=== PATIENT | female | born 1935 | race Caucasian/White ===

== ENCOUNTER 2016-07-30 10:12 | Outpatient (CLI) | payer MEDICARE, OTHER | END 2016-07-30 10:13 | disposition home or self-care (01) | DX: M51.36 Other intervertebral disc degeneration, lumbar region (principal); M47.816 Spondylosis without myelopathy or radiculopathy, lumbar region; M51.26 Other intervertebral disc displacement, lumbar region; M43.16 Spondylolisthesis, lumbar region; M41.86 Other forms of scoliosis, lumbar region ==

== ENCOUNTER 2016-11-11 18:43 | Observation (INO) | payer MEDICARE, OTHER ==
[2016-11-11] MEDS ORDERED: ASPIRIN CHEW 81 MG TABLET PO STA (19:08)
[2016-11-11] MEDS ORDERED: ASPIRIN CHEW 81 MG TABLET ONE (19:24)
[2016-11-11] MEDS ORDERED: HYDROcod/ACETAM 5/325 MG TABLET PO PRN (20:14)
[2016-11-11] MEDS ORDERED: ONDANSETRON 4 MG/2 ML VIAL IVP PRN (20:14)
[2016-11-11] MEDS ORDERED: SODIUM CHLORIDE FLUSH 0.9% 10 ML SYRINGE IVP PRN (20:14)
[2016-11-11] MEDS ORDERED: ONDANSETRON ODT 4 MG TABLET TL PRN (20:14)
[2016-11-11] MEDS ORDERED: NITROGLYCERIN SL 0.4 MG TABLET SL PRN (20:16)
[2016-11-11] MEDS: SODIUM CHLORIDE FLUSH 0.9% 10 ML SYRINGE IVP SCH (21:47)
[2016-11-12] MEDS ORDERED: PANTOPRAZOLE 40 MG TABLET PO STA (00:15)
[2016-11-12] MEDS ORDERED: PANTOPRAZOLE 40 MG TABLET ONE (00:20)
[2016-11-12] MEDS ORDERED: PANTOPRAZOLE 40 MG TABLET PO SCH (00:34)
[2016-11-12] MEDS ORDERED: CALCIUM CARBONATE CHEW 500 MG TABLET PO SCH (01:00)
[2016-11-12] MEDS: SODIUM CHLORIDE FLUSH 0.9% 10 ML SYRINGE IVP SCH (05:38)
[2016-11-12] MEDS ORDERED: metFORMIN 850 MG TABLET PO SCH (08:00)
[2016-11-12] MEDS ORDERED: POLYETHYLENE GLYCOL 3350 17 GM PACKET PO SCH (09:00)
[2016-11-12] MEDS ORDERED: LISINOPRIL 20 MG TABLET PO SCH (09:00)
== END 2016-11-12 09:00 | disposition home or self-care (01) ==
DX: R07.9 Chest pain, unspecified (principal); K21.9 Gastro-esophageal reflux disease without esophagitis; D46.9 Myelodysplastic syndrome, unspecified; E11.65 Type 2 diabetes mellitus with hyperglycemia; E11.22 Type 2 diabetes mellitus with diabetic chronic kidney disease; I12.9 Hypertensive chronic kidney disease with stage 1 through stage 4 chronic kidney disease, or unspecified chronic kidney disease; N18.9 Chronic kidney disease, unspecified
CPT/HCPCS: 36415; 71020; 80048; 80053; 83690; 84484; 85025; 85379; 93005; 93010; 99283; 99285; A9270; G0378

== ENCOUNTER 2016-11-22 07:30 | Outpatient (CLI) | payer MEDICARE, OTHER | END 2016-11-22 07:31 | disposition home or self-care (01) | DX: D63.8 Anemia in other chronic diseases classified elsewhere (principal) ==

== ENCOUNTER 2016-11-22 08:14 | Day surgery (SDC) | payer MEDICARE, OTHER ==
[2016-11-22 08:32] VITALS: BP 159/83
== END 2016-11-22 08:15 | disposition home or self-care (01) ==
LOC: SDS 08:14
PROVIDERS: ATTEND Surgery
DX: C92.Z0 Other myeloid leukemia not having achieved remission (principal); D63.8 Anemia in other chronic diseases classified elsewhere; Z53.09 Procedure and treatment not carried out because of other contraindication
CPT/HCPCS: 85025; 85610; 85730

== ENCOUNTER 2016-12-02 12:22 | Outpatient (CLI) | payer MEDICARE, OTHER | END 2016-12-02 12:23 | disposition home or self-care (01) | DX: Z51.5 Encounter for palliative care (principal); M54.2 Cervicalgia; R63.0 Anorexia; D61.818 Other pancytopenia; D46.9 Myelodysplastic syndrome, unspecified; C92.Z0 Other myeloid leukemia not having achieved remission; Z95.828 Presence of other vascular implants and grafts; R19.7 Diarrhea, unspecified; K59.00 Constipation, unspecified; D69.6 Thrombocytopenia, unspecified; R06.02 Shortness of breath; E11.9 Type 2 diabetes mellitus without complications; N18.9 Chronic kidney disease, unspecified; I10 Essential (primary) hypertension; M35.3 Polymyalgia rheumatica; E78.5 Hyperlipidemia, unspecified; M16.10 Unilateral primary osteoarthritis, unspecified hip; M17.10 Unilateral primary osteoarthritis, unspecified knee; K21.9 Gastro-esophageal reflux disease without esophagitis; K76.0 Fatty (change of) liver, not elsewhere classified; M54.16 Radiculopathy, lumbar region; R61 Generalized hyperhidrosis; Z79.82 Long term (current) use of aspirin; Z79.52 Long term (current) use of systemic steroids; D64.9 Anemia, unspecified; M62.81 Muscle weakness (generalized); F41.9 Anxiety disorder, unspecified ==

== ENCOUNTER 2016-12-03 14:30 | Outpatient (CLI) | payer MEDICARE, OTHER | END 2016-12-03 14:31 | disposition home or self-care (01) | DX: Z51.5 Encounter for palliative care (principal); K13.79 Other lesions of oral mucosa; R63.0 Anorexia; D61.818 Other pancytopenia; D46.9 Myelodysplastic syndrome, unspecified; C92.Z0 Other myeloid leukemia not having achieved remission; R06.02 Shortness of breath; Z79.899 Other long term (current) drug therapy; R68.81 Early satiety; Z66 Do not resuscitate; R53.1 Weakness; R25.1 Tremor, unspecified; E11.65 Type 2 diabetes mellitus with hyperglycemia ==

== ENCOUNTER 2016-12-09 12:34 | Inpatient (IN) | payer MEDICARE, OTHER ==
--- NOTE | 2016-12-09 13:49 | ED Physician Documentation ---
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 She was sent here from the outpatient infusion clinic because of profound weakness associated with a platelet count of 2000 and otherwise worsening pancytopenia. She feels very weak and is short of breath but denies any pain. She is constipated and notes petechia on the lower extremities. She denies gum bleeding.) Review of Systems Ten Systems: 10 systems reviewed and negative Constitutional: reports: Fatigue. denies: Fever, Chills, Myalgias Eyes: denies: Loss of vision, Decreased vision Nose: denies: Rhinorrhea / runny nose, Congestion Respiratory: reports: Cough. denies: Dyspnea, Hemoptysis, Wheezing GI: denies: Abdominal Pain, Nausea, Vomiting PD PAST MEDICAL HISTORY - Past Medical History Cardiovascular: Hypertension, High cholesterol Respiratory: Shortness of breath Endocrine/Autoimmune: Type 2 diabetes GI: GERD, Colon polyps : None HEENT: None Psych: Anxiety Musculoskeletal: Osteoarthritis, Chronic back pain, Other Derm: None - Past Surgical History General: Colonoscopy Ortho: Hip replacement, Knee replacement HEENT: Tonsil/Adenoidectomy - Present Medications Home Medications: Ambulatory Orders Medication Instructions Recorded Confirmed Lisinopril 10 mg PO DAILY 10/23/16 12/09/16 Acetaminophen 100 mg PO BID 11/22/16 12/09/16 Aspirin [Adult Low Dose Aspirin EC] 81 mg PO DAILY 11/22/16 12/09/16 Atorvastatin [Lipitor] 40 mg PO DAILY 11/22/16 12/09/16 Baclofen 10 mg PO BID 11/22/16 12/09/16 Calcium Carbonate 600 mg PO DAILY 11/22/16 12/09/16 Cholecalciferol (Vitamin D3) 2,000 unit PO DAILY 11/22/16 12/09/16 [Vitamin D] Cyanocobalamin (Vitamin B-12) 1,000 mcg PO DAILY 11/22/16 12/09/16 [Vitamin B-12] Prednisone 2.5 mg PO DAILY 11/22/16 12/09/16 metFORMIN [Glucophage] 850 mg PO TIDWM 11/22/16 12/09/16 - Allergies Allergies/Adverse Reactions: Allergies Allergy/AdvReac Type Severity Reaction Status Date / Time ondansetron AdvReac Severe Dizziness Verified 11/11/16 18:53 - Social History Does the pt smoke?: No Smoking Status: Never smoker Does the pt drink ETOH?: No Does the pt have substance abuse?: No - Family History Family history: reports: Non contributory - Immunizations Immunizations are current?: Yes - POLST Patient has POLST: No PD ED PE NORMAL - Vitals Vital signs reviewed: Yes - General General: Alert and oriented X 3, No acute distress - HEENT HEENT: PERRL, EOMI, Other (mild oral thrush) - Neck Neck: Supple, no meningeal sign, No bony TTP - Cardiac Cardiac: No murmur, Other (ttachycardic) - Respiratory Respiratory: No respiratory distress, Clear bilaterally - Abdomen Abdomen: Soft, Non tender - Derm Derm: Other (petechia, especially on lower extremities) - Extremities Extremities: No edema, No calf tenderness / cord - Neuro Neuro: Alert and oriented X 3, Normal speech - Psych Psych: Normal mood, Normal affect Results - Vitals Vitals: Vital Signs - 24 hr 12/09/16 12/09/16 12:39 14:28 Temperature 36.8 C 37.9 C H Heart Rate 128 H 132 H Respiratory 18 17 Rate Blood Pressure 138/77 H 145/86 H O2 Saturation 96 95 Oxygen O2 Source Room air - Rads (name of study) 2v chest Radiology: EMP read contemporaneously (chronic lung dz with RLL infiltrate) PD MEDICAL DECISION MAKING - Consults Consults: Consulted (name) ([place]hour, ok to use reg plts 1352), Discussed case with (Dr Green, hospitalist for admit 1359; again 1432 with CXR result agreed on cefepime and vanc) Departure - Departure Disposition: 66 [facility] DC/Xfer Clinical Impression: Pancytopenia, Thrombocytopenia Leukemia Qualifiers: Leukemia type: acute, unspecified type Leukemia Active/Remission status: relapsed Qualified Code(s): C95.02 - Acute leukemia of unspecified cell type, in relapse Pneumonia Qualifiers: Pneumonia type: due to unspecified organism Laterality: right Lung location: lower lobe of lung Qualified Code(s): J18.1 - Lobar pneumonia, unspecified organism Condition: Serious
--- NOTE | 2016-12-09 14:26 | XRAY Preliminary Report ---
Exam: XR Chest 2 View PA/LAT IMPRESSION: 1. Mild cardiomegaly. 2. Acute on chronic lung disease consisting of right lower lobe infiltrate. [facility] SITE ID: [id number]
[2016-12-09] MEDS ORDERED: VANCOMYCIN INJ 1.5 GM in SODIUM CHLORIDE 0.9% 500 ML IV STA (14:31)
[2016-12-09] MEDS ORDERED: CEFEPIME 1 GM in SODIUM CHLORIDE 0.9% MINIBAG 100 ML IV STA (14:31)
--- NOTE | 2016-12-09 14:44 | XRAY Report ---
EXAM: CHEST RADIOGRAPHY EXAM DATE: 12/09/2016 01:51 PM. CLINICAL HISTORY: Cough. COMPARISON: 11/11/2016. TECHNIQUE: 2 views. FINDINGS: Lungs/Pleura: Overexpanded. No new faint reticulonodular infiltrate right lower lobe, sparing the sup erior segment. Pleural calcifications. No effusion, vascular congestion nor pneumothorax. Mediastinum: New mild cardiomegaly. No tracheal deviation. New right jugular Port-A-Cath tip cavoatrial junction. Other: None. IMPRESSION: 1. Mild cardiomegaly. 2. Acute on chronic lung disease consisting of right lower lobe infiltrate. [facility] Referring Provider Line: [phone] SITE ID: [id number]
[2016-12-09] MEDS ORDERED: SODIUM CHLORIDE 0.9% 1,000 ML IV ONE ×2 (14:59→15:02)
[2016-12-09] MEDS ORDERED: oxyCODONE 5 MG TABLET PO PRN (15:02)
[2016-12-09] MEDS ORDERED: ONDANSETRON 4 MG/2 ML VIAL IVP PRN (15:02)
[2016-12-09] MEDS ORDERED: PROCHLORPERAZINE 10 MG/2 ML VIAL IVP PRN (15:02)
[2016-12-09] MEDS ORDERED: ALBUTEROL NEB 2.5 MG/3 ML INH PRN ×2 (15:02→15:33)
[2016-12-09] MEDS ORDERED: VANCOMYCIN PER PHARMACY 1 GM in SODIUM CHLORIDE 0.9% 250 ML IV SCH (16:00)
--- NOTE | 2016-12-09 16:05 | HISTORY & PHYSICAL EXAMINATION ---
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 The patient also has a past medical history significant for diabetes on metformin, hypertension, hyperlipidemia, osteoarthritis, polymyalgia rheumatica, fatty liver disease, lumbar radiculopathy and GERD who presents to the emergency department with a chief complaint of generalized weakness. The patient states that she has been feeling weak over the last several days she last had chemotherapy 2 days ago and had come in to the back clinic to receive chemotherapy today. When she arrived in the [facility] it she complained to them that she was having generalized weakness and fatigue. It was also noted by the back clinic nurse at the patient had developed petechiae on her feet and her legs. Prior to chemotherapy the patient underwent blood tests her blood revealed a hemoglobin of 7.3, platelet count of 7 and a neutrophil count of 200. Given her profound weakness and platelet count of 7 with petechiae the patient was sent to the emergency department for possible transfusion. On arrival to the emergency department the patient was tachycardic with heart rate in the 130s she a temperature of 37.9 and was complaining of cough but was not in respiratory distress. The patient underwent a chest x-ray in the emergency department. The chest X ray showed acute on chronic lung disease consisting of a right lower lobe infiltrate. The patient was admitted for healthcare associated pneumonia with neutropenia and thrombocytopenia requiring transfusion. Review of Systems - Constitutional Constitutional: reports: Fatigue, Weakness, Poor appetite, Weight loss, Other ( Tremor). denies: Fever, Chills, Malaise - Eyes Eyes: denies: Pain, Irritation, Amaurosis, Blurred vision, Spots in vision, Field loss, Vision loss, Dipolpia, Corrective lenses, Other - Ears, Nose & Throat Ears, Nose & Throat: reports: Sore throat, Mouth lesions, Other (Thrush). denies: Ear pain, Hearing loss, Hearing aids, Tinnitus, Vertigo, Nasal pain, Nasal discharge, Nosebleeds, Nasal obstruction, Nasal congestion, Postnasal drainage, Dentures, Hoarseness, Bleeding gums, Dental decay, Dental pain - Cardiovascular Cariovascular: denies: Irregular heart rate, Palpitations, Chest pain, Edema, Lightheadedness, Syncope, Exertional dyspnea, Decr. exercise tolerance, Orthopnea, Other - Respiratory Respiratory: reports: Cough. denies: Sputum production, Wheezing, Hemoptysis, Orthopnea, SOB at rest, SOB with exertion, Pleuritic pain - Gastrointestinal Gastrointestinal: reports: Diarrhea (chronic). denies: Abdominal pain, Abdominal distention, Constipation, Change in bowel habits, Rectal bleeding, Black stools, Bloody stools, Nausea, Vomiting, Bile emesis, Kamar blood emesis, Coffee grounds emesis, Reflux/heartburn, Bloating, Poor appetite, Other - Genitourinary Genitourinary: denies: Dysuria, Frequency, Urgency, Hematuria, Incontinence, Flank pain, Nocturia, Urethral discharge, Sexual dysfunction, Other - Musculoskeletal Musculoskeletal: denies: Muscle pain, Back pain, Muscle aches, Stiffness, Limited range of motion, Muscle weakness, Gout, Joint pain, Joint swelling, Other - Integumentary Integumentary: reports: Other (Petechiae on her feet bilaterally and up her legs to shins) - Neurological Neurological: reports: General weakness, Memory problems. denies: Focal weakness, Headache, Dizziness, Numbness, Pre-existing deficit, Abnormal gait - Psychiatric Psychiatric: denies: Depression, Anxiety, Suicidal, Delusions, Hallucinations - Endocrine Endocrine: denies: Polyuria, Polydypsia, Polyphagia - Hematologic/Lymphatic Hematologic/Lymphatic: reports: Anemia, Bruising, Petechiae History - Past Medical History Cardiovascular: reports: Hypertension, High cholesterol Endocrine/Autoimmune: reports: Type 2 diabetes GI: reports: GERD, Colon polyps : reports: None HEENT: reports: None Psych: reports: Anxiety Musculoskeletal: reports: Osteoarthritis, Chronic back pain, Other Derm: reports: None MRSA Hx?: No Other Past Medical History: High grade MDS with AML, polymyalgia rheumatica - Past Surgical History General: reports: Colonoscopy Ortho: reports: Hip replacement, Knee replacement HEENT: reports: Tonsil/Adenoidectomy - Family & Social History Family History: Mother: (Old age healthy), Father: Cancer, Sister: Alive and Well (2 sons), Brother: Alive and Well, Other family: Alive and Well Living arrangement: At home Living Situation: Alone Social History Notes: Patient lives in [place] currently lives alone but her son lives nearby and has suggested that she come live with him. She is originally from [facility] moved [facility] in [facility]. Originally she moved to [place]. She is a and has 2 sons one of whom lives in [place]. - Substance History Use: Uses substance without health or social issues: NONE Abuse: Recurrent use of substance despite neg consequences: NONE Dependence: Experiences withdrawal or developed tolerances: NONE - POLST Patient has POLST: No POLST Status: DNR Meds/Allgy - Home Medications Home Medications: Ambulatory Orders Medication Instructions Recorded Confirmed Lisinopril 10 mg PO DAILY 10/23/16 12/09/16 Acetaminophen 100 mg PO BID 11/22/16 12/09/16 Aspirin [Adult Low Dose Aspirin EC] 81 mg PO DAILY 11/22/16 12/09/16 Atorvastatin [Lipitor] 40 mg PO DAILY 11/22/16 12/09/16 Baclofen 10 mg PO BID 11/22/16 12/09/16 Calcium Carbonate 600 mg PO DAILY 11/22/16 12/09/16 Cholecalciferol (Vitamin D3) 2,000 unit PO DAILY 11/22/16 12/09/16 [Vitamin D] Cyanocobalamin (Vitamin B-12) 1,000 mcg PO DAILY 11/22/16 12/09/16 [Vitamin B-12] Prednisone 2.5 mg PO DAILY 11/22/16 12/09/16 metFORMIN [Glucophage] 850 mg PO TIDWM 11/22/16 12/09/16 - Allergies Allergies/Adverse Reactions: Allergies Allergy/AdvReac Type Severity Reaction Status Date / Time ondansetron AdvReac Severe Dizziness Verified 11/11/16 18:53 Exam - Vital Signs Reviewed Vital Signs: Yes - Physical Exam General Appearance: positive: Other (Looks pale and very weak, she has a tremor and does appear to have some difficulty remembering things. She also is slow to respond at times. Looks quite toxic and very ill.) Eyes Bilateral: positive: Normal inspection, PERRL, EOMI, Other (Conjunctival pallor) ENT: positive: ENT inspection nml, Pharynx nml, Oral lesions (thrush), Dry mucous membranes. negative: Purulent nasal drainage Neck: positive: Nml inspection, Thyroid nml, No JVD, Trachea midline. negative : Thyromegaly, Lymphadenopathy (R), Lymphadenopathy (L) Respiratory: positive: Chest non-tender, No respiratory distress, Rhonchi ( Right lung). negative: Wheezes, Rales Cardiovascular: positive: No murmur, No gallop, Tachycardia Peripheral Pulses: positive: 2+ Abdomen: positive: Non-tender, No organomegaly, Nml bowel sounds, No distention. negative: Guarding, Rebound Back: positive: Nml inspection. negative: CVA tenderness (R), CVA tenderness (L ) Skin: positive: Pallor, Skin rash (Petechiae over her feet bilaterally and on her leg to mid francois, bruising on her arms bilaterally) Extremities: positive: Non-tender, Full ROM, Nml appearance, No pedal edema Neurologic/Psychiatric: positive: Oriented x3, CN's nml (2-12), Motor nml, Sensation nml, Mood/affect nml, Weakness (generalized) Conclusion/Plan - Problem List (1) Sepsis Conclusion/Plan: Patient presented with generalized weakness and cough. WBC 1.6, tachycardic 130s, neutropenic 200, fever of 37.9 and CXR evidence of pneumonia Likely source is lungs: pneumonia Undergoing chemo for MDS with AML Plan: IVFs IV abx broad spectrum: Cefepime and Vancomycin Blood cx Monitor closely Qualifiers: Sepsis type: sepsis due to unspecified organism Qualified Code(s): A41.9 - Sepsis, unspecified organism (2) Neutropenic fever Conclusion/Plan: Patient on chemo for MDS and AML Neutropenic on presentation with neutrophil count of 200 Fever of 37.9 in the ER Likely source is pneumonia evident on CXR and patient with cough Plan: Monitor neutrophil count daily Talk to oncology about possible neupogen injections Broad spectrum IV abx Vancomycin and cefepime Neutropenic percautions Blood cx from port and peripheral vein (3) HCAP (healthcare-associated pneumonia) Conclusion/Plan: Presented with generalized weakness, cough and poor appetite Patient with neutropenic fever and sepsis CXR showed right lower lobe infiltrate Patient on chemo will treat as HCAP Plan: IVFs IV abx Vancomycin and cefepime Blood cx O2 as needed (4) Pancytopenia Conclusion/Plan: 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 On chemo last session 2 days ago LE petechiae no other bleeding Neutrophil count of 200 Hb 7.3 Plt count 2 with petechiae Will transfuse plts 6 pack and monitor Will transfuse for hb less than 7 Will talk to oncology about possible neupogen injection Monitor daily (5) JESSICA (acute kidney injury) Conclusion/Plan: 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 1.2 from baseline of 0.9 LIkely pre-renal azotemia Will give IVFs 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 (6) Diabetes Conclusion/Plan: Patient presented with hyperglycemia LIkely secondary to prednisone and acute infection Plan: Sliding scale insulin Glucose checks ACHS Hold metformin HbA1C Diabetic diet Qualifiers: Diabetes mellitus type: type 2 Diabetes mellitus complication status: with hyperglycemia (7) Hypertension Conclusion/Plan: BP elevated on presentation Will continue home dose of lisinopril and monitor Titrate meds if needed (8) Hyperlipidemia Conclusion/Plan: COntinue home dose of lipitor stable (9) Oral thrush Conclusion/Plan: Patient with oral thrush on examination Will treat with oral nystatin - Lab Results Lab results reviewed: Yes - Diagnostic Imaging Results Diagnostic Imaging Results: positive: Final report reviewed - EKG Results EKG Interpreted Independently: Yes Issues/Core Measures - Anticipated LOS Anticipated Stay Length: 2 or more midnights - DVT/VTE - Prophylaxis VTE/DVT Device ordered at admit?: Yes
[2016-12-09 16:51] LABS: HEMOGLOBIN A1C 0.43 g/dL
[2016-12-09] MEDS ORDERED: MAGNESIUM HYDROXIDE 2,400 MG/30 ML UDC PO ONE (18:00)
[2016-12-09] MEDS ORDERED: SENNA 8.6 MG TABLET PO ONE (18:00)
[2016-12-09] MEDS: NYSTATIN 500000 UNITS/5 ML UDC PO SCH ×2 (18:25→20:24)
[2016-12-09] MEDS: SACCHAROMYCES BOULARDII 250 MG CAPSULE PO SCH (18:26)
[2016-12-09] MEDS: INSULIN ASPART 300 UNIT/3 ML PEN SUBQ SCH ×2 (18:26→20:28)
[2016-12-09] MEDS: CEFEPIME 2 GM in SODIUM CHLORIDE 0.9% MINIBAG 100 ML IV SCH (18:27)
[2016-12-09] MEDS: SODIUM CHLORIDE 0.9% 1,000 ML IV SCH (18:27)
[2016-12-09] MEDS: ACETAMINOPHEN 325 MG TABLET PO PRN (18:29)
[2016-12-09] MEDS: BACLOFEN 10 MG TABLET PO SCH (20:24)
[2016-12-09] MEDS: ATORVASTATIN 40 MG TABLET PO SCH (20:24)
[2016-12-09] MEDS: SODIUM CHLORIDE FLUSH 0.9% 10 ML SYRINGE IVP SCH (20:52)
[2016-12-10] MEDS ORDERED: ACETAMINOPHEN 325 MG TABLET PO SCH (00:22)
[2016-12-10] MEDS ORDERED: diphenhydrAMINE 25 MG CAPSULE PO SCH (00:22)
[2016-12-10] MEDS: SODIUM CHLORIDE FLUSH 0.9% 10 ML SYRINGE IVP SCH ×3 (06:13→22:27)
[2016-12-10] MEDS: PANTOPRAZOLE 40 MG TABLET PO SCH (06:14)
[2016-12-10 06:33] LABS: BASOPHILS % (AUTO) 0.3 %; EOSINOPHILS % (AUTO) 0.2 %; LYMPHOCYTES % (AUTO) 29.9 %; MEAN CORPUSCULAR HEMOGLOBIN 29.8 pg (27.0-31.0); MEAN CORPUSCULAR VOLUME 87.7 fL (81.0-99.0); MEAN PLATELET VOLUME 8.3 fL (7.9-10.8); MONOCYTES % (AUTO) 42.4 %; NEUTROPHILS % (AUTO) 27.2 %; RED BLOOD COUNT 2.24 10^6/uL (4.20-5.40); RED CELL DISTRIBUTION WIDTH 14.3 % (12.0-15.0); UNCORRECTED WHITE BLOOD COUNT 1.1 x10^3/uL
[2016-12-10 06:36] LABS: HCT - HEMATOCRIT 19.6 % (37.0-47.0); HGB - HEMOGLOBIN 6.7 g/dL (12.0-16.0); WHITE BLOOD COUNT 1.1 x10^3/uL (4.8-10.8)
[2016-12-10 06:37] LABS: BAND NEUTROPHILS % (MANUAL) 0 %
[2016-12-10 06:39] LABS: CALCIUM 8.1 mg/dL (8.5-10.3); CREATININE 0.8 mg/dL (0.4-1.0)
[2016-12-10] MEDS: SODIUM CHLORIDE 0.9% 1,000 ML IV SCH ×3 (06:50→13:19)
[2016-12-10 06:58] LABS: LYMPHOCYTES % (MANUAL) 52 %; NEUTROPHILS % (MANUAL) 8 %; TOTAL CELLS COUNTED 25
[2016-12-10 07:02] LABS: NP AUTO DIFFERENTIAL? YES; NP MAN DIFFERENTIAL? NO; PLATELET ESTIMATE, MANUAL DECREASED (<130,000) (NORMAL)
[2016-12-10 07:03] LABS: PLATELET MORPHOLOGY NORMAL APP (NORMAL)
[2016-12-10] MEDS: CYANOCOBALAMIN 500 MCG TABLET PO SCH (08:30)
[2016-12-10] MEDS: CALCIUM CARBONATE CHEW 500 MG TABLET PO SCH (08:30)
[2016-12-10] MEDS: ASPIRIN EC 81 MG TABLET PO SCH (08:30)
[2016-12-10] MEDS: NYSTATIN 500000 UNITS/5 ML UDC PO SCH ×4 (08:30→22:25)
[2016-12-10] MEDS: BACLOFEN 10 MG TABLET PO SCH ×2 (08:30→22:26)
[2016-12-10] MEDS: POLYETHYLENE GLYCOL 3350 17 GM PACKET PO SCH (08:30)
[2016-12-10] MEDS: SACCHAROMYCES BOULARDII 250 MG CAPSULE PO SCH (08:30)
[2016-12-10] MEDS: CHOLECALCIFEROL 1,000 UNIT TABLET PO SCH (08:30)
[2016-12-10] MEDS: predniSONE 5 MG TABLET PO SCH (08:31)
[2016-12-10] MEDS: LISINOPRIL 20 MG TABLET PO SCH (08:34)
[2016-12-10] MEDS: INSULIN ASPART 300 UNIT/3 ML PEN SUBQ SCH ×4 (08:48→22:26)
--- NOTE | 2016-12-10 11:06 | PROVIDER PROGRESS NOTE ---
Assessment/Plan - Problem List (1) HCAP (healthcare-associated pneumonia) Assessment/Plan: She is on antibx for this. She has not had a fever last 12 hours. CXR shows bibasilar infiltrates. He WBC only 100. needs further RX may even need a week inpat. (2) Neutropenic fever Assessment/Plan: The source appears to be the pneumonia. Will monitor closely. (3) Thrombocytopenia Assessment/Plan: She chronically runs at 10 K She is 2K now Will give he plts today and if needed tomorrow. (4) Anemia Qualifiers: Anemia type: other cause Other causes of anemia: acute posthemorrhagic Qualified Code(s): D62 - Acute posthemorrhagic anemia Assessment/Plan: She has not improved since the RBCs given yesterday. Will give 2 more packed RBCs. - Current Meds Current Meds: Current Medications Generic Name Dose Route Start Last Admin Trade Name Freq PRN Reason Stop Dose Admin Acetaminophen 650 mg 12/09/16 15:02 12/09/16 18:29 Tylenol PO 650 mg Q4HR PRN Administration Pain 1 to 4 Aspirin 81 mg 12/10/16 09:00 12/10/16 08:30 Ecotrin PO Not Given DAILY AMANDA Atorvastatin Calcium 40 mg 12/09/16 21:00 12/09/16 20:24 Lipitor PO 40 mg QPM AMANDA Administration Baclofen 10 mg 12/09/16 21:00 12/10/16 08:30 Lioresal PO 10 mg BID AMANDA Administration Calcium Carbonate/Glycine 500 mg 12/10/16 09:00 12/10/16 08:30 Tums PO 500 mg DAILY AMANDA Administration Cholecalciferol 2,000 unit 12/10/16 09:00 12/10/16 08:30 Vitamin D3 PO 2,000 unit DAILY AMANDA Administration Cyanocobalamin 1,000 mcg 12/10/16 09:00 12/10/16 08:30 Vitamin B-12 PO 1,000 mcg DAILY AMANDA Administration Sodium Chloride 1,000 mls @ 150 mls/hr 12/09/16 16:00 12/10/16 06:52 Normal Saline 0.9% IV Not Given .Q6H40M AMANDA Cefepime HCl 2 gm/ Sodium 100 mls @ 200 mls/hr 12/09/16 18:00 12/09/16 18:27 Chloride IV 200 mls/hr Q24H AMANDA Administration Insulin Aspart 1 - 9 unit 12/09/16 17:00 12/10/16 08:48 Novolog SUBQ 3 unit 0800,1200,1700,2100 AMANDA Administration Protocol Lisinopril 10 mg 12/10/16 09:00 12/10/16 08:34 Zestril PO 10 mg DAILY AMANDA Administration Nystatin 5 ml 12/09/16 17:00 12/10/16 08:30 Mycostatin PO 5 ml QID AMANDA Administration Pantoprazole Sodium 40 mg 12/10/16 07:00 12/10/16 06:14 Protonix PO 40 mg QDAC AMANDA Administration Polyethylene Glycol 17 gm 12/10/16 09:00 12/10/16 08:30 Miralax PO 17 gm DAILY AMANDA Administration Prednisone 2.5 mg 12/10/16 08:00 12/10/16 08:31 Deltasone PO 2.5 mg DAILYWM AMANDA Administration Sodium Chloride 10 ml 12/09/16 22:00 12/10/16 08:35 Normal Saline Flush 0.9% IVP Not Given Q8HR AMANDA - Lab Result Fish Bone Diagrams: 12/10/16 06:10 12/10/16 06:10 - Additional Planning My Orders: My Active Orders 12/10/16 08:44 Transfuse Platelet Pheresis Pk [RC] ONCE 12/10/16 08:52 Transfuse Platelet Pheresis Pk [RC] ONCE 12/10/16 08:56 Transfuse RBCs Leukoreduced [RC] ONCE 12/10/16 09:30 BLOOD TYPE Urgent PLATELETPHERESIS LEUKO REDUCED Urgent 12/10/16 10:59 TYPE AND SCREEN Urgent 12/10/16 Lunch Neutropenic (Low Microbial) Diet [DIET] Subjective - Subjective Patient Reports: Resting Comfortably, Fatigue, Other (no appetite. She did have a BM this am.) Objective Vital Signs: Vital Signs - 24 hr 12/09/16 12/09/16 12/09/16 16:30 18:00 21:15 Temperature 39.1 C H 37.5 C 36.7 C Heart Rate 125 H Heart Rate [ 126 H 103 H Brachial] Respiratory 18 18 Rate Blood Pressure 130/78 125/73 [Left Brachial artery] O2 Saturation 95 95 12/10/16 12/10/16 12/10/16 00:15 01:20 02:00 Temperature 36.9 C 39.2 C H 37.8 C H Heart Rate Heart Rate [ 123 H 125 H 113 H Brachial] Respiratory 16 26 H 26 H Rate Blood Pressure 156/79 H 135/69 H 114/62 [Left Brachial artery] O2 Saturation 94 93 94 12/10/16 12/10/16 12/10/16 02:40 03:19 04:00 Temperature 38.0 C H 36.8 C 36.3 C L Heart Rate Heart Rate [ 107 H 96 97 Brachial] Respiratory 26 H 24 22 Rate Blood Pressure 123/68 109/63 130/70 [Left Brachial artery] O2 Saturation 96 96 97 12/10/16 12/10/16 12/10/16 04:55 05:15 09:00 Temperature 36.5 C 36.6 C Heart Rate 113 H Heart Rate [ 95 91 Brachial] Respiratory 22 22 18 Rate Blood Pressure 123/74 131/77 H [Left Brachial artery] O2 Saturation 98 94 Oxygen O2 Source Nasal cannula I&O (Last 24 Hrs): Intake and Output Totals x24h 12/08/16 12/09/16 12/10/16 23:59 23:59 23:59 Intake Total 1175 1489 Output Total 600 Balance 1175 889 General: Alert, Oriented x3 HEENT: PERRLA, EOMI Neuro: Alert, Non Focal Cardiovascular: Regular rate, Other (She has tachy and 2/6 murmur) Respiratory: No respiratory distress, Breath sounds nml Abdomen: Normal bowel sounds, Soft Extremities: No cyanosis, No edema, Other (She has a R foot tremmor can vbe stopped with) - Results Results: Laboratory Results WBC 1.1 x10^3/uL (4.8-10.8) L* 12/10/16 06:10 RBC 2.24 10^6/uL (4.20-5.40) L 12/10/16 06:10 Hgb 6.7 g/dL (12.0-16.0) L* 12/10/16 06:10 Hct 19.6 % (37.0-47.0) L* 12/10/16 06:10 MCV 87.7 fL (81.0-99.0) 12/10/16 06:10 MCH 29.8 pg (27.0-31.0) 12/10/16 06:10 MCHC 34.0 g/dL (32.0-36.0) 12/10/16 06:10 RDW 14.3 % (12.0-15.0) 12/10/16 06:10 Plt Count 2 10^3/uL (130-450) L* 12/10/16 06:10 MPV 8.3 fL (7.9-10.8) 12/10/16 06:10 Neut # Not Reportable 12/10/16 06:10 Lymph # Not Reportable 12/10/16 06:10 [place] # Not Reportable 12/10/16 06:10 Eos # Not Reportable 12/10/16 06:10 Baso # Not Reportable 12/10/16 06:10 Absolute Nucleated RBC Not Reportable 12/10/16 06:10 Total Counted 25 12/10/16 06:10 Band Neuts % (Manual) 0 % (0-10) 12/10/16 06:10 Reactive Lymphs % (Man) 12 % 12/10/16 06:10 Abnorm Lymph % (Manual) 16 % 12/10/16 06:10 Myelocytes % 4 % (-0) H 12/10/16 06:10 Neutrophils # (Manual) 0.1 10^3/uL (1.5-6.6) L* 12/10/16 06:10 Lymphocytes # (Manual) 0.9 10^3/uL (1.5-3.5) L 12/10/16 06:10 Monocytes # (Manual) 0.1 10^3/uL (0.0-1.0) 12/10/16 06:10 Nucleated RBCs Not Reportable 12/10/16 06:10 Differential Comment MANUAL DIFFERENTIAL 12/10/16 06:10 Platelet Estimate DECREASED (<130,000) (NORMAL) 12/10/16 06:10 Platelet Morphology NORMAL MARLEY (NORMAL) 12/10/16 06:10 RBC Morph Micro Appear NORMAL APPEARANCE (NORMAL) 12/10/16 06:10 Sodium 135 mmol/L (135-145) 12/10/16 06:10 Potassium 4.0 mmol/L (3.5-5.0) 12/10/16 06:10 Chloride 103 mmol/L (101-111) 12/10/16 06:10 Carbon Dioxide 24 mmol/L (21-32) 12/10/16 06:10 Anion Gap 8.0 (6-13) 12/10/16 06:10 BUN 23 mg/dL (6-20) H 12/10/16 06:10 Creatinine 0.8 mg/dL (0.4-1.0) 12/10/16 06:10 Estimated GFR (MDRD) 69 (>89) L 12/10/16 06:10 Glucose 221 mg/dL (70-100) H 12/10/16 06:10 Glycated Hemoglobin 7.4 % (4.6-6.2) H 12/09/16 16:21 Estim Average Glucose 166 (70-100) H 12/09/16 16:21 Calcium 8.1 mg/dL (8.5-10.3) L 12/10/16 06:10 - Procedures Procedures: Procedures ANAL BIOPSY (11/15/13) ENDOSC POLYPECTOMY OF LG INTEST (11/15/13) EXTRACTION OF ILIAC BONE MARROW, PERC APPROACH, DIAGN (09/15/15) INSERTION OF INFUSION DEV INTO SUP VENA CAVA, PERC APPROACH (10/04/15) TRANSFUSE NONAUT FROZEN PLASMA IN PERIPH VEIN, PERC (09/15/15) TRANSFUSE NONAUT RED BLOOD CELLS IN PERIPH VEIN, PERC (09/15/15)
[2016-12-10] MEDS: ACETAMINOPHEN 325 MG TABLET PO PRN ×3 (13:09→22:00)
[2016-12-10] MEDS: VANCOMYCIN INJ 1 GM, VANCOMYCIN INJ 250 MG in SODIUM CHLORIDE 0.9% 250 ML IV SCH (13:14)
[2016-12-10] MEDS: oxyCODONE 5 MG TABLET PO PRN (16:56)
[2016-12-10] MEDS: SODIUM CHLORIDE FLUSH 0.9% 10 ML SYRINGE IVP PRN ×3 (16:56→23:09)
[2016-12-10] MEDS: CEFEPIME 2 GM in SODIUM CHLORIDE 0.9% MINIBAG 100 ML IV SCH (18:25)
[2016-12-10] MEDS: ATORVASTATIN 40 MG TABLET PO SCH (22:26)
[2016-12-10] MEDS ORDERED: FUROSEMIDE 20 MG/2 ML VIAL IVP STA (22:45)
[2016-12-10] MEDS ORDERED: SODIUM CHLORIDE 0.9% 1,000 ML IV SCH (23:35)
[2016-12-11] MEDS: SODIUM CHLORIDE 0.9% 1,000 ML IV SCH ×2 (00:02→12:16)
[2016-12-11] MEDS: oxyCODONE 5 MG TABLET PO PRN (00:36)
[2016-12-11 00:55] LABS: BILIRUBIN,URINE NEGATIVE (NEGATIVE); PH,URINE 5.5 PH (5.0-7.5)
[2016-12-11 00:56] LABS: UR CULTURE IF IND NOT INDICATED; WBC,URINE 0-3 /HPF (0-5)
[2016-12-11] MEDS: SODIUM CHLORIDE FLUSH 0.9% 10 ML SYRINGE IVP SCH ×2 (05:20→12:16)
[2016-12-11 06:08] LABS: BASOPHILS % (AUTO) 0.3 %; HCT - HEMATOCRIT 24.7 % (37.0-47.0); HGB - HEMOGLOBIN 8.5 g/dL (12.0-16.0); LYMPHOCYTES % (AUTO) 21.7 %; MEAN CORPUSCULAR HEMOGLOBIN 30.1 pg (27.0-31.0); MEAN CORPUSCULAR HGB CONC 34.3 g/dL (32.0-36.0); MEAN CORPUSCULAR VOLUME 87.6 fL (81.0-99.0); MEAN PLATELET VOLUME 12.7 fL (7.9-10.8); MONOCYTES % (AUTO) 47.5 %; NEUTROPHILS % (AUTO) 27.5 %; RED BLOOD COUNT 2.82 10^6/uL (4.20-5.40); RED CELL DISTRIBUTION WIDTH 13.8 % (12.0-15.0); UNCORRECTED WHITE BLOOD COUNT 1.3 x10^3/uL
[2016-12-11 06:13] LABS: CREATININE 0.9 mg/dL (0.4-1.0); POTASSIUM 3.5 mmol/L (3.5-5.0)
[2016-12-11 06:17] LABS: WHITE BLOOD COUNT 1.3 x10^3/uL (4.8-10.8)
[2016-12-11 07:00] LABS: BAND NEUTROPHILS % (MANUAL) 2 %; LYMPHOCYTES % (MANUAL) 34 %; NEUTROPHILS % (MANUAL) 2 %; TOTAL CELLS COUNTED 50
[2016-12-11] MEDS: PANTOPRAZOLE 40 MG TABLET PO SCH (07:00)
[2016-12-11 07:03] LABS: NP AUTO DIFFERENTIAL? YES; NP MAN DIFFERENTIAL? NO; PLATELET ESTIMATE, MANUAL DECREASED (<130,000) (NORMAL)
[2016-12-11] MEDS: INSULIN ASPART 300 UNIT/3 ML PEN SUBQ SCH ×3 (08:28→16:35)
[2016-12-11] MEDS: CALCIUM CARBONATE CHEW 500 MG TABLET PO SCH (08:29)
[2016-12-11] MEDS: CYANOCOBALAMIN 500 MCG TABLET PO SCH (08:29)
[2016-12-11] MEDS: ASPIRIN EC 81 MG TABLET PO SCH (08:29)
[2016-12-11] MEDS: CHOLECALCIFEROL 1,000 UNIT TABLET PO SCH (08:30)
[2016-12-11] MEDS: BACLOFEN 10 MG TABLET PO SCH (08:30)
[2016-12-11] MEDS: LISINOPRIL 20 MG TABLET PO SCH (08:30)
[2016-12-11] MEDS: POLYETHYLENE GLYCOL 3350 17 GM PACKET PO SCH (08:31)
[2016-12-11] MEDS: predniSONE 5 MG TABLET PO SCH (08:45)
[2016-12-11] MEDS: ACETAMINOPHEN 325 MG TABLET PO PRN ×2 (08:46→14:29)
[2016-12-11] MEDS: NYSTATIN 500000 UNITS/5 ML UDC PO SCH ×4 (09:25→21:23)
[2016-12-11] MEDS ORDERED: MORPHINE 2 MG/ML SYRINGE IVP PRN (12:09)
--- NOTE | 2016-12-11 12:42 | ADVANCE CARE PLANNING NOTE ---
Advance Care Planning - Date/Time Date: 12/11/16 Time: 10:40 - Purpose of encounter Text: she is not responding to treatment. - Parties in attendance Parties in attendance: Kendall Edmondson and Nuria Hardwick - Decisional capacity Decisional capacity of: She was Dx with the Leukenia and then as result of the Chemo she got leukopenia then the pneumonia with thrombocytopenia, and no neutrophils despite antibx still has fevers, weakness, hypoxia and exhaustion. - Objective/Medical story Objective/Medical Story: see above. - Goals of Care Goals of care determinations: If no improvement in the next 24 hours transition to comfort care. The son is in agreement. other son Ant will be here from [place] tomorrow. robert understands she may in the interim. - Code Status Code Status: Do Not Attempt Resuscitation - Time Spent on Advance Care Planning Time spent on advance care plannin minutes
--- NOTE | 2016-12-11 12:46 | PROVIDER PROGRESS NOTE ---
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 (2) Pneumonia Qualifiers: Pneumonia type: due to unspecified organism Laterality: right Lung location: lower lobe of lung Qualified Code(s): J18.1 - Lobar pneumonia, unspecified organism Assessment/Plan: There has not been any improvement she has other complications eg. the thrombocytopenia and bleeding. - Current Meds Current Meds: Current Medications Generic Name Dose Route Start Last Admin Trade Name Freq PRN Reason Stop Dose Admin Acetaminophen 650 mg 12/09/16 15:02 12/11/16 08:46 Tylenol PO 650 mg Q4HR PRN Administration Pain 1 to 4 Albuterol 2.5 mg 12/09/16 15:33 12/11/16 05:45 INH 2.5 mg RTQ4H PRN Administration Wheezing Aspirin 81 mg 12/10/16 09:00 12/11/16 08:29 Ecotrin PO 81 mg DAILY AMANDA Administration Atorvastatin Calcium 40 mg 12/09/16 21:00 12/10/16 22:26 Lipitor PO 40 mg QPM AMANDA Administration Baclofen 10 mg 12/09/16 21:00 12/11/16 08:30 Lioresal PO 10 mg BID AMANDA Administration Calcium Carbonate/Glycine 500 mg 12/10/16 09:00 12/11/16 08:29 Tums PO 500 mg DAILY AMANDA Administration Cholecalciferol 2,000 unit 12/10/16 09:00 12/11/16 08:30 Vitamin D3 PO 2,000 unit DAILY AMANDA Administration Cyanocobalamin 1,000 mcg 12/10/16 09:00 12/11/16 08:29 Vitamin B-12 PO 1,000 mcg DAILY AMANDA Administration Cefepime HCl 2 gm/ Sodium 100 mls @ 200 mls/hr 12/09/16 18:00 12/10/16 18:25 Chloride IV 200 mls/hr Q24H AMANDA Administration Vancomycin HCl 1 gm/ 250 mls @ 167 mls/hr 12/10/16 14:00 12/10/16 13:14 Vancomycin HCl 250 mg/ Sodium IV 167 mls/hr Chloride Q24H AMANDA Administration Sodium Chloride 1,000 mls @ 30 mls/hr 12/11/16 12:09 12/11/16 12:16 Normal Saline 0.9% IV 30 mls/hr .[id number] AMANDA Administration Insulin Aspart 2 - 10 unit 12/10/16 17:00 12/11/16 12:16 Novolog SUBQ 10 unit 0800,1200,1700,2100 AMANDA Administration Protocol Lisinopril 10 mg 12/10/16 09:00 12/11/16 08:30 Zestril PO 10 mg DAILY AMANDA Administration Nystatin 5 ml 12/09/16 17:00 12/11/16 12:16 Mycostatin PO 5 ml QID AMANDA Administration Oxycodone HCl 5 mg 12/09/16 15:02 12/11/16 00:36 Roxicodone PO 5 mg Q4HR PRN Administration Pain 5 to 7 Pantoprazole Sodium 40 mg 12/10/16 07:00 12/11/16 07:00 Protonix PO 40 mg QDAC AMANDA Administration Polyethylene Glycol 17 gm 12/10/16 09:00 12/11/16 08:31 Miralax PO 17 gm DAILY AMANDA Administration Prednisone 2.5 mg 12/10/16 08:00 12/11/16 08:45 Deltasone PO 2.5 mg DAILYWM AMANDA Administration Sodium Chloride 10 ml 12/09/16 15:02 12/10/16 23:09 Normal Saline Flush 0.9% IVP 10 ml PRN PRN Administration NEEDED PER PROVIDER ORDERS Sodium Chloride 10 ml 12/09/16 22:00 12/11/16 12:16 Normal Saline Flush 0.9% IVP Not Given Q8HR AMANDA - Lab Result Fish Bone Diagrams: 12/11/16 05:24 12/11/16 05:24 - Additional Planning My Orders: My Active Orders 12/11/16 12:09 Morphine Inj [Morphine] 2 mg IVP Q2HR PRN Morphine Oral Soln [Roxanol] 5 mg PO Q2HR PRN Sodium Chloride 0.9% [Normal Saline 0.9%] 1,000 ml IV 30 mls/hr 12/11/16 12:11 Miscellaenous Nursing Order [RC] Q4HR Subjective - Subjective Patient Reports: Resting Comfortably, Fever, Pain Nursing Reports: Pain, Shortness of Breath Objective Vital Signs: Vital Signs - 24 hr 12/10/16 12/10/16 12/10/16 13:50 15:50 19:05 Temperature 36.7 C 39.0 C H Heart Rate 110 H Heart Rate [ 128 H 117 H Brachial] Heart Rate [ Radial] Respiratory 18 18 18 Rate Blood Pressure 122/69 130/73 [Left Brachial artery] Blood Pressure [Right Brachial artery] O2 Saturation 92 93 12/10/16 12/10/16 12/11/16 22:17 22:29 00:59 Temperature 37.9 C H 38.9 C H 38.1 C H Heart Rate Heart Rate [ 123 H 111 H 130 H Brachial] Heart Rate [ Radial] Respiratory 24 18 24 Rate Blood Pressure 161/82 H 161/82 H [Left Brachial artery] Blood Pressure 149/74 H [Right Brachial artery] O2 Saturation 93 97 95 12/11/16 12/11/16 12/11/16 03:58 05:45 07:09 Temperature 36.9 C 37.6 C H Heart Rate 108 H Heart Rate [ Brachial] Heart Rate [ 97 Radial] Respiratory 20 18 Rate Blood Pressure [Left Brachial artery] Blood Pressure 160/71 H [Right Brachial artery] O2 Saturation 96 12/11/16 12/11/16 12/11/16 09:35 09:50 11:30 Temperature 37.7 C H 37.8 C H Heart Rate 120 H Heart Rate [ 141 H Brachial] Heart Rate [ 116 H Radial] Respiratory 18 22 24 Rate Blood Pressure [Left Brachial artery] Blood Pressure 151/72 H 117/52 L [Right Brachial artery] O2 Saturation 93 96 12/11/16 11:57 Temperature 37.2 C Heart Rate Heart Rate [ Brachial] Heart Rate [ 116 H Radial] Respiratory 22 Rate Blood Pressure [Left Brachial artery] Blood Pressure 109/63 [Right Brachial artery] O2 Saturation 95 Oxygen O2 Source Nasal cannula I&O (Last 24 Hrs): Intake and Output Totals x24h 12/09/16 12/10/16 12/11/16 23:59 23:59 23:59 Intake Total 1175 3927 860 Output Total 900 800 Balance 1175 3027 60 General: Alert, Oriented x3, Cooperative HEENT: PERRLA, EOMI Neck: No JVD, No thyromegaly Neuro: Alert, Oriented Times 3 Cardiovascular: Regular rate, No murmurs Respiratory: Rales, Rhonchi Abdomen: Normal bowel sounds, Soft - Results Results: Laboratory Results WBC 1.3 x10^3/uL (4.8-10.8) L* 12/11/16 05:24 RBC 2.82 10^6/uL (4.20-5.40) L 12/11/16 05:24 Hgb 8.5 g/dL (12.0-16.0) L 12/11/16 05:24 Hct 24.7 % (37.0-47.0) L 12/11/16 05:24 MCV 87.6 fL (81.0-99.0) 12/11/16 05:24 MCH 30.1 pg (27.0-31.0) 12/11/16 05:24 MCHC 34.3 g/dL (32.0-36.0) 12/11/16 05:24 RDW 13.8 % (12.0-15.0) 12/11/16 05:24 Plt Count 1 10^3/uL (130-450) L* 12/11/16 05:24 MPV 12.7 fL (7.9-10.8) H 12/11/16 05:24 Neut # Not Reportable 12/11/16 05:24 Lymph # Not Reportable 12/11/16 05:24 Pine # Not Reportable 12/11/16 05:24 Eos # Not Reportable 12/11/16 05:24 Baso # Not Reportable 12/11/16 05:24 Absolute Nucleated RBC Not Reportable 12/11/16 05:24 Total Counted 50 12/11/16 05:24 Band Neuts % (Manual) 2 % (0-10) 12/11/16 05:24 Reactive Lymphs % (Man) 12 % 12/11/16 05:24 Abnorm Lymph % (Manual) 14 % 12/11/16 05:24 Metamyelocytes % 14 % (-0) H 12/11/16 05:24 Myelocytes % 6 % (-0) H 12/11/16 05:24 Neutrophils # (Manual) 0.1 10^3/uL (1.5-6.6) L* 12/11/16 05:24 Lymphocytes # (Manual) 0.8 10^3/uL (1.5-3.5) L 12/11/16 05:24 Monocytes # (Manual) 0.2 10^3/uL (0.0-1.0) 12/11/16 05:24 Nucleated RBCs Not Reportable 12/11/16 05:24 Differential Comment MANUAL DIFFERENTIAL 12/11/16 05:24 Platelet Estimate DECREASED (<130,000) (NORMAL) 12/11/16 05:24 Platelet Morphology NORMAL MARLEY (NORMAL) 12/10/16 06:10 RBC Morph Micro Appear NORMAL MARLEY (NORMAL) 12/11/16 05:24 Sodium 137 mmol/L (135-145) 12/11/16 05:24 Potassium 3.5 mmol/L (3.5-5.0) 12/11/16 05:24 Chloride 103 mmol/L (101-111) 12/11/16 05:24 Carbon Dioxide 25 mmol/L (21-32) 12/11/16 05:24 Anion Gap 9.0 (6-13) 12/11/16 05:24 BUN 22 mg/dL (6-20) H 12/11/16 05:24 Creatinine 0.9 mg/dL (0.4-1.0) 12/11/16 05:24 Estimated GFR (MDRD) 60 (>89) L 12/11/16 05:24 Glucose 162 mg/dL (70-100) H 12/11/16 05:24 POC Whole Bld Glucose 349 mg/dL (70 - 100) H 12/11/16 11:50 Glycated Hemoglobin 7.4 % (4.6-6.2) H 12/09/16 16:21 Estim Average Glucose 166 (70-100) H 12/09/16 16:21 Calcium 8.0 mg/dL (8.5-10.3) L 12/11/16 05:24 Urine Color RED/BLOODY 12/11/16 00:45 Urine Clarity SL. CLOUDY (CLEAR) 12/11/16 00:45 Urine pH 5.5 PH (5.0-7.5) 12/11/16 00:45 Ur Specific [place] 1.010 (1.002-1.030) 12/11/16 00:45 Urine Protein 30 mg/dL (NEGATIVE) H 12/11/16 00:45 Urine Glucose (UA) 500 mg/dL (NEGATIVE) H 12/11/16 00:45 Urine Ketones NEGATIVE mg/dL (NEGATIVE) 12/11/16 00:45 Urine Occult Blood LARGE (NEGATIVE) H 12/11/16 00:45 Urine Nitrite NEGATIVE (NEGATIVE) 12/11/16 00:45 Urine Bilirubin NEGATIVE (NEGATIVE) 12/11/16 00:45 Urine Urobilinogen 0.2 (NORMAL) E.U./dL (NORMAL) 12/11/16 00:45 Ur Leukocyte Esterase NEGATIVE (NEGATIVE) 12/11/16 00:45 Urine RBC TNTC /HPF (0-5) H 12/11/16 00:45 Urine WBC 0-3 /HPF (0-5) 12/11/16 00:45 Ur Squamous Epith Cells RARE Squamous (<= Few) 12/11/16 00:45 Urine Bacteria Rare /HPF (None Seen) 12/11/16 00:45 Urine Culture Comments NOT INDICATED 12/11/16 00:45 Blood Type O POSITIVE 12/10/16 09:30 Antibody Screen NEGATIVE 12/10/16 09:30 Crossmatch IS Only See Detail 12/10/16 09:30 - Procedures Procedures: Procedures ANAL BIOPSY (11/15/13) ENDOSC POLYPECTOMY OF LG INTEST (11/15/13) EXTRACTION OF ILIAC BONE MARROW, PERC APPROACH, DIAGN (09/15/15) INSERTION OF INFUSION DEV INTO SUP VENA CAVA, PERC APPROACH (10/04/15) TRANSFUSE NONAUT FROZEN PLASMA IN PERIPH VEIN, PERC (09/15/15) TRANSFUSE NONAUT RED BLOOD CELLS IN PERIPH VEIN, PERC (09/15/15)
[2016-12-11] MEDS: VANCOMYCIN INJ 1 GM, VANCOMYCIN INJ 250 MG in SODIUM CHLORIDE 0.9% 250 ML IV SCH (14:25)
[2016-12-11] MEDS ORDERED: ACETAMINOPHEN 325 MG TABLET PO PRN (19:02)
--- NOTE | 2016-12-12 00:08 | CONSULTATION NOTE ---
DATE OF CONSULTATION: 12/11/2016 00:00:00 REQUESTING PROVIDER: Dr. Harpal Arzola. TIME OF VISIT: 11-12 noon. TOPIC: Followup palliative care consult. Thank you Dr. Arzola asking the palliative care consult service to be involved in the care of your th e patient. I am asked to provide support as well as transitions of goals, a transition of care and im minent decline. 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 She had a very difficult we ek and tolerated both disease and treatment poorly with increasing weakness, increased fatigue, poor appetite, increasing shortness of breath and somewhat acute deterioration over the weekend. On presen tation to the [facility] on 12/09/2016, with her acute illness, she was admitted to the hospital and diagnosed with pneumonia and sepsis, neutropenic fever and acute kidney injury. I had touched rodolfo currie with her on 12/09/2016 given our scheduled meeting, in the ED. She was aware she was extremely sick and not doing well. We did review her goals of care. She had completed POLST at her last visit and this was communicated to her son, Delvis, as well as copy provided. I had checked in on her yesterd ay and she continued to feel poorly, but not showing much improvement and certainly concerned that piter ugarte was not going to recover from this episode. Her son was aware of this and was again weighing benefi ts and burdens of how best to proceed and psychosocial support was given. The agreement was that we w camille meet again today formally to try and define further given the information we would have as what might be decisions that might need to be addressed. Unfortunately, today she is again feeling quite p oorly. She is not responding as far as her antibiotics. She continues to have fevers, increased tremu lousness, increased fatigue. She is feeling more short of breath, does appear to have some third spac ing with increased swelling in her upper arms to her belly and increased difficulty with respirations . She does have fine crackles in the bases. They have been trying to transfuse her, unfortunately her platelets today were 1000. She is having active bleeding with blistering around her lips and tongue, significant hematoma on her extremities, as well as hematuria. She is having frequency and urgency a nd is feeling quite weakened and overwhelmed with toileting. She denies pain, does admit to feeling h orribly. She does again recognize the gravity of her situation. She also was feeling somewhat anorexi c and is feeling like people are pushing her to eat and is feeling quite uncomfortable with this and prefers just to take sips of fluid as tolerated. CODE STATUS: THE PATIENT IS A DO NOT ATTEMPT RESUSCITATION, DO NOT INTUBATE. BRIEF SOCIAL HISTORY: The patient has been living independently up to this point in time and it was r ecognized she was going to be needing increased support. Her son, Delvis and Rj, have had multiple conv ersations weighing benefits and burdens of transition at home for a at home with hospice suppor t but he is feeling quite overwhelmed at this point in time with the acuity of her illness and her qu ick demise. He is struggling with this, so I did discuss the palliative care discussion about waiting just how her journey is going to unfold. He does have another brother who is coming from [place] as soon as possible. Her grandchildren, 2 granddaughters, are coming up within the next few hours and her ex [id number] was present at the bedside as well. PERFORMANCE STATUS: The patient is currently bedbound. She has been making transfers but they have be en horrendously difficult on her. She perceives she would be just more comfortable being diapered and kept in bed. REVIEW OF SYSTEMS: HEENT: Her mouth is blistering up with some black blood blisters. She has had this prior as a side ef fect of her chemotherapy. Denies any pain with this. This is not comfortable though eating. CARDIOVASCULAR: Denies chest pain. RESPIRATORY: She does report shortness of breath even at rest. She denies distress or requesting medi cation at this point in time but she was reassured we would make that available. GASTROINTESTINAL: Her bowels last moved on 12/10/2016. GENITOURINARY: She is having hematuria and some urgency with voiding. MUSCULOSKELETAL: She is quite distressed by her tremors. She does have a fairly significant right-gladys ed tremors in her right arm and leg. INTEGUMENTARY: As noted above she has multiple hematomas and bruising areas in particular. She is rep orting her legs are feeling too hot and she still has SCDs on. PSYCHIATRIC: See the palliative care discussion. NEUROLOGIC: She does have diabetes. Her blood sugar has been elevated. HEMATOLOGIC/IMMUNOLOGIC: She remains pancytopenic; today's count, WBC was 1.3, hemoglobin 8.5, hemato crit 24.7, and platelet around 1000 and neutrophils 0.1. The patient has received multiple blood prod ucts over the last couple days. PHYSICAL EXAMINATION: GENERAL APPEARANCE: She does appear quite pale, somewhat distressed. Respiratory rate about 28, just is very fatigued with periorbital edema. ENT: Her mucous membranes, she does have blackened and dry lips. Her tongue has some blisters on it. NECK: Her trachea is midline. RESPIRATORY: She does have crackles. She is having some respiratory effort. She denies any cough, reyes s admit to shortness breath. CARDIOVASCULAR: Her pulse is at 96, slightly thready. ABDOMEN: Rounded, soft. SKIN: As noted above. EXTREMITIES: She is quite weak and does have continued tremors in her right arm and leg. Her voice is quite soft. PALLIATIVE CARE DISCUSSION: Who is present, I did meet originally meet with Delvis and Dr. Arzola. We d id review the gravity of the situation and we are now 48 hours into her hospitalization, and she is s till having high fevers and her counts are very serious. She certainly could transition at any point far as an end of life event and I am concerned about her overall comfort and suffering. She is having hematuria. The discussion was if there was no improvement in 24 hours, which would be a total of 72, we would focus on comfort and do this sooner if indicated by patient's wishes. I did spend some time with the son discussing about bringing the patient home. Again, the son is concerned about meeting h er needs, very fearful about her acute decline and managing her symptoms without professional support . We did agree in preparation to talk to his mother, how we would present it and information as far a s what is most important to her. I myself met with the patient and son and at the bedside. I did present to her that things were quite serious and our concern was that she was not improving and most likely we were not going to be able to turn this around. She does feel quite poorly and this was not a surprise to her. She is true to he r nature, quite worried about her sons and the burden that this is on them. We did review in the cont ext of her goals from previous conversations if she were no longer able to recognize her family or wa s unconscious that we would transition to comfort measures sooner. We did discuss the importance of k eeping her comfortable to provide relief of her suffering and to support her and her family in this p rocess. Her family is all coming together; we did discuss how difficult this is but certainly an oppo rtunity to be able to say their goodbyes. She is quite fond of Delvis's dog, Blue, and was hoping to be able see him one more time. I did defer this to the visiting pet policy to see if this wish could be met. Dr. Harpal Arzola and nursing research greenhouse supervisor will followup in the context of this. 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 IMPRESSION: This is a 81-year-old woman with AML and worsening symptom burden related to her sepsis, pneumonia and pancytopenia. She is aware of the gravity of the situation and is hopeful to have a com fortable and respectful with minimization of suffering and her concern, of course, is being a b urden to her family. RECOMMENDATIONS/COUNSELING DONE: 1. Advanced care planning. Counseling was done regarding the patient's imminent demise, clarifying go als if she were to lose consciousness, focus on ease of suffering and support for her family is most important to her. Her goals and wishes were communicated to the hospital team and put in her record. 2. Hematuria. The patient is quite distressed by her increased weakness, difficulty getting to the co mmode and her breathlessness. She did want the catheter. We discussed that this was not possible, giv en her current platelet count. She is quite relieved and willing to be diapered and this would give h er great relief of her anxiety as well as physical distress. 3. Dyspnea. This is multifactorial in origin. Will look at decreasing her fluid overload with the hos pitalist regarding her IV that is going to 80 mL an hour and also look at having morphine available f or any respiratory distress or discomfort. Currently, the patient does have oxygen on. 4. Anorexia. It does cause patient some distress to feel pressured about eating. This was communicate d to the team and will offer food and fluids just for comfort. 5. Coping with grief and loss. Psychosocial support and counseling was provided both to the patient a nd to the son, and anticipatory guidance given. Thank you Dr. Arzola for asking the palliative care consult service to be involved in the care of you r the patient in this very complex and sad situation. I will follow through for further support carlee silva as needed. TIME SPENT: 60 minutes with greater than 50% of this done in counseling and coordination of care, fam stacy conference as well as establishing goals and anticipatory guidance. JOB #: [id number] EXT JOB #:[id number]
[2016-12-12] MEDS: SODIUM CHLORIDE 0.9% 1,000 ML IV SCH (01:15)
[2016-12-12] MEDS: MORPHINE SOL 10 MG/0.5 ML SYRINGE PO PRN ×2 (01:32→04:39)
[2016-12-12] MEDS ORDERED: LORazepam 2 MG/ML SYRINGE ONE (08:23)
[2016-12-12] MEDS: ATROPINE 1% OPHTH DROPS 2 ML SL PRN ×2 (08:49→15:59)
[2016-12-12] MEDS: NYSTATIN 500000 UNITS/5 ML UDC PO SCH ×4 (09:42→20:56)
[2016-12-12] MEDS: MORPHINE 2 MG/ML SYRINGE IVP PRN ×2 (14:28→23:37)
--- NOTE | 2016-12-12 17:36 | PROVIDER PROGRESS NOTE ---
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 Sabrina said no more antibiotics. and just to be comfortable. (2) Pneumonia Qualifiers: Pneumonia type: due to unspecified organism Laterality: right Lung location: lower lobe of lung Qualified Code(s): J18.1 - Lobar pneumonia, unspecified organism Assessment/Plan: Her pneumonia is progressing. She also has pancytopenia and is at risk for bleeding or having a cardiac event from the anemia. - Current Meds Current Meds: Current Medications Generic Name Dose Route Start Last Admin Trade Name Freq PRN Reason Stop Dose Admin Acetaminophen 650 mg 12/11/16 19:02 12/11/16 21:22 Tylenol PO 650 mg Q4HR PRN Administration Pain or Fever > 38C (100.4F) Atropine Sulfate 1 - 4 drops 12/11/16 18:26 12/12/16 15:59 Isopto Atropine 1% Ophth Drops SL 4 drops Q2H PRN Administration Excessive secretions Sodium Chloride 1,000 mls @ 30 mls/hr 12/11/16 12:09 12/12/16 01:15 Normal Saline 0.9% IV 30 mls/hr .[id number] AMANDA Administration Morphine Sulfate 5 mg 12/11/16 12:09 12/12/16 04:39 Roxanol PO 5 mg Q2HR PRN Administration PAIN Morphine Sulfate 2 mg 12/12/16 08:18 12/12/16 14:28 Morphine IVP 2 mg Q1HR PRN Administration PAIN Nystatin 5 ml 12/09/16 17:00 12/12/16 13:18 Mycostatin PO Not Given QID AMANDA Sodium Chloride 10 ml 12/09/16 15:02 12/10/16 23:09 Normal Saline Flush 0.9% IVP 10 ml PRN PRN Administration NEEDED PER PROVIDER ORDERS - Lab Result Fish Bone Diagrams: 12/11/16 05:24 12/11/16 05:24 - Additional Planning My Orders: My Active Orders 12/11/16 18:26 Oral Care - Nursing [RC] Q2HR Oxygen Therapy [RC] .PRN Vital Signs [RC] PRN Atropine 1% Ophth Drops [Isopto Atropine 1% Ophth Drops] 1 - 4 drops SL Q2H PRN 12/11/16 19:02 Acetaminophen [Tylenol] 650 mg PO Q4HR PRN 12/12/16 08:18 Morphine Inj [Morphine] 2 mg IVP Q1HR PRN 12/12/16 08:19 LORazepam INJ [Ativan Inj] 1 mg IVP Q1HR PRN Subjective - Subjective Patient Reports: Resting Comfortably Nursing Reports: Confused, Shortness of Breath Objective Vital Signs: Vital Signs - 24 hr 12/12/16 12/12/16 01:19 07:37 Temperature 36.8 C 37.3 C Heart Rate [ 120 H 127 H Radial] Respiratory 28 H 24 Rate Blood Pressure 169/32 H 161/74 H [Left Brachial artery] Blood Pressure 170/78 H [Right Brachial artery] O2 Saturation 95 95 Oxygen O2 Source Nasal cannula I&O (Last 24 Hrs): Intake and Output Totals x24h 12/10/16 12/11/16 12/12/16 23:59 23:59 23:59 Intake Total 3927 1395 500 Output Total 900 800 Balance 3027 595 500 General: Mild distress, Moderate distress HEENT: PERRLA, EOMI Neck: No JVD, No thyromegaly Neuro: Disoriented Respiratory: Chest non-tender, Rhonchi Extremities: No clubbing, Normal pulses Skin: No breakdown - Results Results: Laboratory Results WBC 1.3 x10^3/uL (4.8-10.8) L* 12/11/16 05:24 RBC 2.82 10^6/uL (4.20-5.40) L 12/11/16 05:24 Hgb 8.5 g/dL (12.0-16.0) L 12/11/16 05:24 Hct 24.7 % (37.0-47.0) L 12/11/16 05:24 MCV 87.6 fL (81.0-99.0) 12/11/16 05:24 MCH 30.1 pg (27.0-31.0) 12/11/16 05:24 MCHC 34.3 g/dL (32.0-36.0) 12/11/16 05:24 RDW 13.8 % (12.0-15.0) 12/11/16 05:24 Plt Count 1 10^3/uL (130-450) L* 12/11/16 05:24 MPV 12.7 fL (7.9-10.8) H 12/11/16 05:24 Neut # Not Reportable 12/11/16 05:24 Lymph # Not Reportable 12/11/16 05:24 [place] # Not Reportable 12/11/16 05:24 Eos # Not Reportable 12/11/16 05:24 Baso # Not Reportable 12/11/16 05:24 Absolute Nucleated RBC Not Reportable 12/11/16 05:24 Total Counted 50 12/11/16 05:24 Band Neuts % (Manual) 2 % (0-10) 12/11/16 05:24 Reactive Lymphs % (Man) 12 % 12/11/16 05:24 Abnorm Lymph % (Manual) 14 % 12/11/16 05:24 Metamyelocytes % 14 % (-0) H 12/11/16 05:24 Myelocytes % 6 % (-0) H 12/11/16 05:24 Neutrophils # (Manual) 0.1 10^3/uL (1.5-6.6) L* 12/11/16 05:24 Lymphocytes # (Manual) 0.8 10^3/uL (1.5-3.5) L 12/11/16 05:24 Monocytes # (Manual) 0.2 10^3/uL (0.0-1.0) 12/11/16 05:24 Nucleated RBCs Not Reportable 12/11/16 05:24 Differential Comment MANUAL DIFFERENTIAL 12/11/16 05:24 Platelet Estimate DECREASED (<130,000) (NORMAL) 12/11/16 05:24 Platelet Morphology NORMAL MARLEY (NORMAL) 12/10/16 06:10 RBC Morph Micro Appear NORMAL MARLEY (NORMAL) 12/11/16 05:24 Sodium 137 mmol/L (135-145) 12/11/16 05:24 Potassium 3.5 mmol/L (3.5-5.0) 12/11/16 05:24 Chloride 103 mmol/L (101-111) 12/11/16 05:24 Carbon Dioxide 25 mmol/L (21-32) 12/11/16 05:24 Anion Gap 9.0 (6-13) 12/11/16 05:24 BUN 22 mg/dL (6-20) H 12/11/16 05:24 Creatinine 0.9 mg/dL (0.4-1.0) 12/11/16 05:24 Estimated GFR (MDRD) 60 (>89) L 12/11/16 05:24 Glucose 162 mg/dL (70-100) H 12/11/16 05:24 POC Whole Bld Glucose 205 mg/dL (70 - 100) H 12/12/16 07:32 Glycated Hemoglobin 7.4 % (4.6-6.2) H 12/09/16 16:21 Estim Average Glucose 166 (70-100) H 12/09/16 16:21 Calcium 8.0 mg/dL (8.5-10.3) L 12/11/16 05:24 Urine Color RED/BLOODY 12/11/16 00:45 Urine Clarity SL. CLOUDY (CLEAR) 12/11/16 00:45 Urine pH 5.5 PH (5.0-7.5) 12/11/16 00:45 Ur Specific [place] 1.010 (1.002-1.030) 12/11/16 00:45 Urine Protein 30 mg/dL (NEGATIVE) H 12/11/16 00:45 Urine Glucose (UA) 500 mg/dL (NEGATIVE) H 12/11/16 00:45 Urine Ketones NEGATIVE mg/dL (NEGATIVE) 12/11/16 00:45 Urine Occult Blood LARGE (NEGATIVE) H 12/11/16 00:45 Urine Nitrite NEGATIVE (NEGATIVE) 12/11/16 00:45 Urine Bilirubin NEGATIVE (NEGATIVE) 12/11/16 00:45 Urine Urobilinogen 0.2 (NORMAL) E.U./dL (NORMAL) 12/11/16 00:45 Ur Leukocyte Esterase NEGATIVE (NEGATIVE) 12/11/16 00:45 Urine RBC TNTC /HPF (0-5) H 12/11/16 00:45 Urine WBC 0-3 /HPF (0-5) 12/11/16 00:45 Ur Squamous Epith Cells RARE Squamous (<= Few) 12/11/16 00:45 Urine Bacteria Rare /HPF (None Seen) 12/11/16 00:45 Urine Culture Comments NOT INDICATED 12/11/16 00:45 Blood Type O POSITIVE 12/10/16 09:30 Antibody Screen NEGATIVE 12/10/16 09:30 Crossmatch IS Only See Detail 12/10/16 09:30 - Procedures Procedures: Procedures ANAL BIOPSY (11/15/13) ENDOSC POLYPECTOMY OF LG INTEST (11/15/13) EXTRACTION OF ILIAC BONE MARROW, PERC APPROACH, DIAGN (09/15/15) INSERTION OF INFUSION DEV INTO SUP VENA CAVA, PERC APPROACH (10/04/15) TRANSFUSE NONAUT FROZEN PLASMA IN PERIPH VEIN, PERC (09/15/15) TRANSFUSE NONAUT RED BLOOD CELLS IN PERIPH VEIN, PERC (09/15/15)
[2016-12-12] MEDS: LORazepam 2 MG/ML SYRINGE IVP PRN (18:32)
[2016-12-12] MEDS: SODIUM CHLORIDE FLUSH 0.9% 10 ML SYRINGE IVP PRN ×2 (18:33→22:26)
[2016-12-13] MEDS: ATROPINE 1% OPHTH DROPS 2 ML SL PRN ×4 (00:08→17:15)
[2016-12-13] MEDS: LORazepam 2 MG/ML SYRINGE IVP PRN ×3 (04:21→09:20)
[2016-12-13] MEDS: SODIUM CHLORIDE FLUSH 0.9% 10 ML SYRINGE IVP PRN (04:21)
[2016-12-13] MEDS: MORPHINE 2 MG/ML SYRINGE IVP PRN ×11 (05:51→19:34)
--- NOTE | 2016-12-13 06:33 | CONSULTATION NOTE ---
DATE OF CONSULTATION: 12/12/2016 00:00:00 REQUESTING PROVIDER: Harpal Arzola MD TIME OF VISIT 8:30 to 9 a.m. TOPIC: Followup palliative care consult. Thank you, Dr. Arzola for asking the palliative care consult service to be involved in the care of yo ur patient. I am asked to provide support regarding goals of care. BRIEF HISTORY OF PRESENT ILLNESS: This is a adrian 81-year-old woman who now is transitioning with co mfort measures as far as imminent decline. Last night did make the decision to discontinue her antibi otics with her support from Dr. Arzola and her son. The patient currently has just received some sonia zepam, had been experiencing some anxiety and respiratory distress. She does have a rapid respiratory rate of about 30-34 with some slight effort. She is able to awaken and recognizes myself. When asked if she had any pain, she did deny discomfort, but did admit to some respiratory effort. The patient is quite hot to touch. She does appear quite flushed. She is slightly sedated, was difficult to arous e later far as following up on her donation plans. Her vital signs this morning were 37.3, her heart rate 127, blood pressure was elevated at 170/78. Her son Delvis is at the bedside as well as her younge r granddaughter. Her other son, Ant is expected late this afternoon. I had received a call from the son Delvis regarding her request as far as wanted to donate her body to "science" and we had obtained information from [place] previously. She was not aware if she filled out the information yet or not. I did bring in the forms. The patient is not currently able to participa te in this conversation. We did review the information together, and he felt like he could still supp ort this and knew that this was important to his mother. I did call [facility], went through the initial screening, they did feel they could go forward and be screened at the time of . Information rece ived. If the patient is unable to sign, both sons can give permission, if one has DPOA paperwork, can sign and faxed the information ahead of time along with DPOA information. I provided another option [employer] pamphlet which does for medical research as well out of [place], but also son was given a l ist of homes as does not to pick a home, as "plan B." SYMPTOM BURDEN: The patient is experiencing increased dyspnea and discomfort does have adequate medic ations to address both with morphine and Ativan. The nurses are providing very attentive and providin g compassionate care. Her family continued to lee and she does seem to be aware of their presence. Expectation of prognosis is hours to days. 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 She does have adequate support for symptom management. Famil y is at bedside doing lee. Hope is son will be in in time from Ant Larsen. Anticipatory guid ance and psychosocial support has been offered. RECOMMENDATIONS/COUNSELING DONE: 1) Transitioning for end of life. The patient continues with high fevers, pancytopenia and septicemia . Currently, she does appear comfortable after the lorazepam. Would continue to aggressively manage h er symptoms to allow for a comfortable respectful with minimizing suffering. I did offer chapla in support, Delvis's reflection on this is that it really was not "their thing" but is aware Hospice ch aplain personal fitness manager if anyone would like to proceed with referral. Anticipatory guidance was provided, as well as life review and reflection. Information was provided for body donation. This was reviewed wit both social work and the hospitalist. The packet was placed in the front of the chart. TIME SPENT: 30 minutes with greater than 50% of this done in counseling and coordination of care, zoe huntley regarding plans and support of family. JOB #: [id number] EXT JOB #:[id number]
[2016-12-13] MEDS: ACETAMINOPHEN 1,000 MG/100 ML 100 ML IV PRN ×2 (06:49→15:57)
[2016-12-13] MEDS: NYSTATIN 500000 UNITS/5 ML UDC PO SCH ×4 (08:58→20:44)
--- NOTE | 2016-12-13 09:13 | PROVIDER PROGRESS NOTE ---
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 She had some aggitation and will have an ativan infusion started. (2) Pneumonia Qualifiers: Pneumonia type: due to unspecified organism Laterality: right Lung location: lower lobe of lung Qualified Code(s): J18.1 - Lobar pneumonia, unspecified organism Assessment/Plan: She is more hypoxic and increased work of breathing. Pneumonia is progressing. She has had continued fevers. - Current Meds Current Meds: Current Medications Generic Name Dose Route Start Last Admin Trade Name Freq PRN Reason Stop Dose Admin Acetaminophen 650 mg 12/11/16 19:02 12/11/16 21:22 Tylenol PO 650 mg Q4HR PRN Administration Pain or Fever > 38C (100.4F) Atropine Sulfate 1 - 4 drops 12/11/16 18:26 12/13/16 05:52 Isopto Atropine 1% Ophth Drops SL 2 drops Q2H PRN Administration Excessive secretions Sodium Chloride 1,000 mls @ 30 mls/hr 12/11/16 12:09 12/12/16 01:15 Normal Saline 0.9% IV 30 mls/hr .[id number] AMANDA Administration Acetaminophen 100 mls @ 400 mls/hr 12/12/16 20:29 12/13/16 06:49 Ofirmev IV 400 mls/hr Q6HR PRN Administration Pain or T>38.0 Lorazepam 1 mg 12/12/16 08:19 12/13/16 07:18 Ativan Inj IVP 1 mg Q1HR PRN Administration Anxiety Morphine Sulfate 5 mg 12/11/16 12:09 12/12/16 04:39 Roxanol PO 5 mg Q2HR PRN Administration PAIN Morphine Sulfate 2 mg 12/12/16 08:18 12/13/16 09:01 Morphine IVP 2 mg Q1HR PRN Administration PAIN Nystatin 5 ml 12/09/16 17:00 12/13/16 08:58 Mycostatin PO Not Given QID AMANDA Sodium Chloride 10 ml 12/09/16 15:02 12/13/16 04:21 Normal Saline Flush 0.9% IVP 10 ml PRN PRN Administration NEEDED PER PROVIDER ORDERS - Lab Result Fish Bone Diagrams: 12/11/16 05:24 12/11/16 05:24 - Additional Planning My Orders: My Active Orders 12/12/16 08:18 Morphine Inj [Morphine] 2 mg IVP Q1HR PRN 12/12/16 08:19 LORazepam INJ [Ativan Inj] 1 mg IVP Q1HR PRN 12/13/16 09:00 LORazepam 100MG/100ML [Ativan] 100 ml IV 0.01 mg/kg/hr Subjective - Subjective Patient Reports: Resting Comfortably, Shortness of Breath Nursing Reports: Shortness of Breath Objective Vital Signs: Vital Signs - 24 hr 12/12/16 12/12/16 12/12/16 18:41 20:28 21:25 Temperature 39.7 C H 37.7 C H Respiratory 24 Rate 12/13/16 12/13/16 00:00 05:59 Temperature 39.3 C H Respiratory 33 H Rate Oxygen O2 Source Nasal cannula I&O (Last 24 Hrs): Intake and Output Totals x24h 12/11/16 12/12/16 12/13/16 23:59 23:59 23:59 Intake Total 1395 995 224 Output Total 800 Balance 595 995 224 Neuro: Other (coma most of the time.) Cardiovascular: Other (tachy) Respiratory: Rales, Rhonchi Abdomen: Soft, No tenderness - Results Results: Laboratory Results WBC 1.3 x10^3/uL (4.8-10.8) L* 12/11/16 05:24 RBC 2.82 10^6/uL (4.20-5.40) L 12/11/16 05:24 Hgb 8.5 g/dL (12.0-16.0) L 12/11/16 05:24 Hct 24.7 % (37.0-47.0) L 12/11/16 05:24 MCV 87.6 fL (81.0-99.0) 12/11/16 05:24 MCH 30.1 pg (27.0-31.0) 12/11/16 05:24 MCHC 34.3 g/dL (32.0-36.0) 12/11/16 05:24 RDW 13.8 % (12.0-15.0) 12/11/16 05:24 Plt Count 1 10^3/uL (130-450) L* 12/11/16 05:24 MPV 12.7 fL (7.9-10.8) H 12/11/16 05:24 Neut # Not Reportable 12/11/16 05:24 Lymph # Not Reportable 12/11/16 05:24 [place] # Not Reportable 12/11/16 05:24 Eos # Not Reportable 12/11/16 05:24 Baso # Not Reportable 12/11/16 05:24 Absolute Nucleated RBC Not Reportable 12/11/16 05:24 Total Counted 50 12/11/16 05:24 Band Neuts % (Manual) 2 % (0-10) 12/11/16 05:24 Reactive Lymphs % (Man) 12 % 12/11/16 05:24 Abnorm Lymph % (Manual) 14 % 12/11/16 05:24 Metamyelocytes % 14 % (-0) H 12/11/16 05:24 Myelocytes % 6 % (-0) H 12/11/16 05:24 Neutrophils # (Manual) 0.1 10^3/uL (1.5-6.6) L* 12/11/16 05:24 Lymphocytes # (Manual) 0.8 10^3/uL (1.5-3.5) L 12/11/16 05:24 Monocytes # (Manual) 0.2 10^3/uL (0.0-1.0) 12/11/16 05:24 Nucleated RBCs Not Reportable 12/11/16 05:24 Differential Comment MANUAL DIFFERENTIAL 12/11/16 05:24 Platelet Estimate DECREASED (<130,000) (NORMAL) 12/11/16 05:24 Platelet Morphology NORMAL MARLEY (NORMAL) 12/10/16 06:10 RBC Morph Micro Appear NORMAL [place] (NORMAL) 12/11/16 05:24 Sodium 137 mmol/L (135-145) 12/11/16 05:24 Potassium 3.5 mmol/L (3.5-5.0) 12/11/16 05:24 Chloride 103 mmol/L (101-111) 12/11/16 05:24 Carbon Dioxide 25 mmol/L (21-32) 12/11/16 05:24 Anion Gap 9.0 (6-13) 12/11/16 05:24 BUN 22 mg/dL (6-20) H 12/11/16 05:24 Creatinine 0.9 mg/dL (0.4-1.0) 12/11/16 05:24 Estimated GFR (MDRD) 60 (>89) L 12/11/16 05:24 Glucose 162 mg/dL (70-100) H 12/11/16 05:24 POC Whole Bld Glucose 205 mg/dL (70 - 100) H 12/12/16 07:32 Glycated Hemoglobin 7.4 % (4.6-6.2) H 12/09/16 16:21 Estim Average Glucose 166 (70-100) H 12/09/16 16:21 Calcium 8.0 mg/dL (8.5-10.3) L 12/11/16 05:24 Urine Color RED/BLOODY 12/11/16 00:45 Urine Clarity SL. CLOUDY (CLEAR) 12/11/16 00:45 Urine pH 5.5 PH (5.0-7.5) 12/11/16 00:45 Ur Specific [place] 1.010 (1.002-1.030) 12/11/16 00:45 Urine Protein 30 mg/dL (NEGATIVE) H 12/11/16 00:45 Urine Glucose (UA) 500 mg/dL (NEGATIVE) H 12/11/16 00:45 Urine Ketones NEGATIVE mg/dL (NEGATIVE) 12/11/16 00:45 Urine Occult Blood LARGE (NEGATIVE) H 12/11/16 00:45 Urine Nitrite NEGATIVE (NEGATIVE) 12/11/16 00:45 Urine Bilirubin NEGATIVE (NEGATIVE) 12/11/16 00:45 Urine Urobilinogen 0.2 (NORMAL) E.U./dL (NORMAL) 12/11/16 00:45 Ur Leukocyte Esterase NEGATIVE (NEGATIVE) 12/11/16 00:45 Urine RBC TNTC /HPF (0-5) H 12/11/16 00:45 Urine WBC 0-3 /HPF (0-5) 12/11/16 00:45 Ur Squamous Epith Cells RARE Squamous (<= Few) 12/11/16 00:45 Urine Bacteria Rare /HPF (None Seen) 12/11/16 00:45 Urine Culture Comments NOT INDICATED 12/11/16 00:45 Blood Type O POSITIVE 12/10/16 09:30 Antibody Screen NEGATIVE 12/10/16 09:30 Crossmatch IS Only See Detail 12/10/16 09:30 - Procedures Procedures: Procedures ANAL BIOPSY (11/15/13) ENDOSC POLYPECTOMY OF LG INTEST (11/15/13) EXTRACTION OF ILIAC BONE MARROW, PERC APPROACH, DIAGN (09/15/15) INSERTION OF INFUSION DEV INTO SUP VENA CAVA, PERC APPROACH (10/04/15) TRANSFUSE NONAUT FROZEN PLASMA IN PERIPH VEIN, PERC (09/15/15) TRANSFUSE NONAUT RED BLOOD CELLS IN PERIPH VEIN, PERC (09/15/15)
[2016-12-13] MEDS: LORazepam 100MG/100ML 100 ML IV SCH (09:29)
[2016-12-13] MEDS: SODIUM CHLORIDE 0.9% 1,000 ML IV SCH (10:28)
[2016-12-14 00:30] VITALS: BP 93/58
[2016-12-14] MEDS: MORPHINE 2 MG/ML SYRINGE IVP PRN ×2 (00:39→07:52)
[2016-12-14] MEDS: LORazepam 100MG/100ML 100 ML IV SCH (08:42)
[2016-12-14] MEDS: NYSTATIN 500000 UNITS/5 ML UDC PO SCH (10:10)
--- NOTE | 2016-12-16 07:20 | DISCHARGE SUMMARY ---
DATE OF ADMISSION: 12/09/2016 DATE OF DISCHARGE: 12/14/2016 ADMISSION DIAGNOSES 1. Sepsis. 2. Healthcare associated pneumonia. 3. Acute myelogenous leukemia. 4. Pancytopenia. 5. Acute kidney injury. 6. Diabetes. 7. Hypertension. 8. Hyperglycemia. 9. Oral thrush. CAUSE OF : 1. Pneumonia with 2. Sepsis and 3. Acute Myelogenous Leukemia. SPECIAL PROCEDURES: None. CONSULTATIONS: None. HOSPITAL COURSE AND MANAGEMENT: The initial presentation, evaluation and hospital plan are well described in the history and physical by Dr. Green, see copy of same. 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 Initial response and then worsening problems with pancytopenia, profound fatigue and need for blood transfusion. Her past medical history is also remarkable for diabetes, hypertension, hyperlipidemia, osteoarthritis, PMR , lumbar radiculopathy and GERD. She presented to the emergency department with generalized weakness. Previous to her chemotherapy, she had a hemoglobin of 7.3 , platelet count of 7, neutrophil count of 200. She was originally seen for possible transfusion. When she arrived she had a tachycardia, had a cough, and found to have infiltrate in the lungs so she was admitted for healthcare pneumonia, neutropenia, and thrombocytopenia. The patient continued to have a fever. The patient's count dropped to 2 and she received platelets. The next day it was down to 1 and again received platelets. Her hemoglobin and hematocrit did not improve significantly despite 2 units of packed red cells. Her absolute neutrophils were only 100. The family was consulted and it was agreed that if there was no improvement in the next 24 hours the patient would be transferred to comfort care. The patient did not improve and Nuria Hardwick, who had been following the patient for palliative care, also consulted, and the patient was transferred to comfort care. She became more hypoxic and required morphine and Ativan at intervals and subsequently an Ativan drip, and she drifted into a coma. Family was in attendance when she , and she on the morning of 12/14/2016. Arrangements were made to have her body donated to [employer] [facility] through the [facility]. JOB #: [id number] EXT JOB #:[id number] BRAIN
== END 2016-12-14 09:40 | disposition expired | DRG 871 ==
LOC: ED 12:34 → MS 15:02
PROVIDERS: ADMIT Internal Medicine; ATTEND Internal Medicine
PROC: 30233R1 Transfusion of Nonautologous Platelets into Peripheral Vein, Percutaneous Approach (ICD-10-PCS; principal; 2016-12-10)
PROC: 30233N1 Transfusion of Nonautologous Red Blood Cells into Peripheral Vein, Percutaneous Approach (ICD-10-PCS; 2016-12-10)
DX: A41.9 Sepsis, unspecified organism (principal); C92.Z0 Other myeloid leukemia not having achieved remission; J18.9 Pneumonia, unspecified organism; D61.818 Other pancytopenia; N17.9 Acute kidney failure, unspecified; B37.0 Candidal stomatitis; E78.00 Pure hypercholesterolemia, unspecified; E11.9 Type 2 diabetes mellitus without complications; D62 Acute posthemorrhagic anemia; C92.Z2 Other myeloid leukemia, in relapse; Z92.21 Personal history of antineoplastic chemotherapy; K59.00 Constipation, unspecified; I10 Essential (primary) hypertension; K21.9 Gastro-esophageal reflux disease without esophagitis; Z79.82 Long term (current) use of aspirin; Z79.52 Long term (current) use of systemic steroids; Z79.84 Long term (current) use of oral hypoglycemic drugs; Y95 Nosocomial condition; E11.65 Type 2 diabetes mellitus with hyperglycemia; Z51.5 Encounter for palliative care; Z96.649 Presence of unspecified artificial hip joint; Z96.659 Presence of unspecified artificial knee joint; Z66 Do not resuscitate; D46.9 Myelodysplastic syndrome, unspecified; E78.5 Hyperlipidemia, unspecified; R31.9 Hematuria, unspecified; R63.0 Anorexia; Z68.28 Body mass index [BMI] 28.0-28.9, adult; D70.9 Neutropenia, unspecified; R50.81 Fever presenting with conditions classified elsewhere
CPT/HCPCS: 71020; 80048; 81001; 83036; 85025; 86850; 86900; 86901; 86920; 87040; 87086; 94640; 94664; 96365; 99232; 99233; 99283; 99284; 99285

== ENCOUNTER 2016-12-09 13:20 | Outpatient (CLI) | payer MEDICARE, OTHER | END 2016-12-09 13:21 | disposition home or self-care (01) | LOC: PC 13:20 | PROVIDERS: ATTEND Nurse Practitioner Adult Health | DX: Z53.9 Procedure and treatment not carried out, unspecified reason (principal) ==